=== PATIENT | female | born 2005 | race Caucasian/White ===

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

== ENCOUNTER 2024-02-12 00:55 | Emergency (ER) | payer OTHER ==
[~2024-02-12] VITALS: Ht 167.6 cm; Wt 110.7 kg
[2024-02-12 01:30] VITALS: BP 134/76; PULSE 68; RESP 16; TEMP 97.5; O2SAT 100
[2024-02-12 02:50] VITALS: O2SAT 100
[2024-02-12] MEDS: ACETAMINOPHEN EXTRA STRENGTH 500 MG TAB PO ONE (03:03)
== END 2024-02-12 03:44 | disposition home or self-care (01) ==
LOC: MED 00:55
DX: G44.209 Tension-type headache, unspecified, not intractable (principal); J45.909 Unspecified asthma, uncomplicated; R06.02 Shortness of breath
CPT/HCPCS: 71045; 81025; 93005; 99283

== ENCOUNTER 2024-06-19 11:19 | Emergency (ER) | payer OTHER ==
[~2024-06-19] VITALS: Ht 167.6 cm; Wt 114.1 kg
[2024-06-19 11:20] VITALS: BP 116/71; PULSE 88; RESP 16; TEMP 98; O2SAT 98
[2024-06-19] MEDS: ACETAMINOPHEN EXTRA STRENGTH 500 MG TAB PO ONE (12:37)
[2024-06-19 14:35] VITALS: O2SAT 98
[2024-06-19] MEDS ORDERED: LID5T TP (14:56)
[2024-06-19] MEDS ORDERED: ACET500T99 PO (14:56)
== END 2024-06-19 15:01 | disposition home or self-care (01) ==
LOC: MED 11:19
DX: S20.212A Contusion of left front wall of thorax, initial encounter (principal); J45.909 Unspecified asthma, uncomplicated; Z79.899 Other long term (current) drug therapy; Z98.890 Other specified postprocedural states; X58.XXXA Exposure to other specified factors, initial encounter; Y93.41 Activity, dancing; Y92.89 Other specified places as the place of occurrence of the external cause; Y99.8 Other external cause status
CPT/HCPCS: 71101; 99283